=== PATIENT | female | born 1945 | race Caucasian/White ===

== ENCOUNTER 2019-01-19 06:54 | Inpatient (IN) ==
--- NOTE | 2019-01-10 10:12 | Anesthesiology Consultation ---
Date of Service January 10, 2019 Assessment & Plan Chart Review Chart Review: Pending: Refer to Additional Notes / Consult section The patient has a history of coronary artery disease, hypertension, atrial fibrillation and diabetes. Please obtain cardiology clearance. Also patient's last INR elevated to 2.17 on xarelto. Please have cardiology address. Repeat coags have been ordered for morning of surgery. Patient has a history of multiple cerebral aneurysms with last one coiled in 2009. Please obtain neurosurgery clearance to ensure no prior testing/imaging is needed prior to elective surgery. Patient states her son may have had malignant hyperthermia and that she was told to use precautions. Patient's anesthetic record from [facility] from 2009 for endovascular coiling showed the patient had GA with sevofluorane. Recommend patient be scheduled first in the day in case MH precautions need to be taken. History Surgery Operation Date: 01/19/19 08:45 Proposed Procedures p Right Reverse Total Shoulder Arthroplasty - Emeterio Mcgrath MD Height/Weight Height: 5 ft 3 in Weight: 73.936 kg Allergies Allergy/AdvReac Type Severity Reaction Status Date / Time Sulfa (Sulfonamide Allergy Unknown Hives Verified 12/22/18 12:16 Antibiotics) Medications Home Medications Medication Instructions Recorded Confirmed Last Taken amiodarone 200 mg PO QDL 08/23/18 12/22/18 08/23/18 calcium carbonate-vitamin D3 1 tab PO BID 08/23/18 12/22/18 08/23/18 [Calcium 600 + D(3)] carvedilol [Coreg] 12.5 mg PO BIDM 08/23/18 12/22/18 08/23/18 cholecalciferol (vitamin D3) 1,000 unit PO QAM 08/23/18 12/22/18 08/23/18 [Vitamin D3] levothyroxine 175 mcg PO QAM 08/23/18 12/22/18 08/23/18 lorazepam [Ativan] 0.5 mg PO UD PRN 08/23/18 12/22/18 Unknown losartan 100 mg PO QAM 08/23/18 12/22/18 08/23/18 metformin 500 mg PO QAM 08/23/18 12/22/18 08/23/18 nitroglycerin 1 tab SUBLINGUAL UD PRN 08/23/18 12/22/18 Unknown omeprazole 20 mg PO QAM 0412/22/18 08/23/18 pyridoxine (vitamin B6) [Vitamin 200 mg PO QAM 12/22/18 12/22/18 Unknown B-6] rivaroxaban [Xarelto] 20 mg PO QDD 12/22/18 12/22/18 Unknown Past Medical History Medical History Afib DX 06/2016 - [facility] [place]. 12/22/2018 PT STATES BACK IN AFIB AGAIN DIAGNOSES 08/2018 Aneurysm "3 IN HEAD, 1 COILED " - 10 YR AGO ([place]) Anxiety Anxiety Chronic diarrhea "FROM METFORMIN" Coronary artery disease Degenerative disc disease LUMBAR GERD (gastroesophageal reflux disease) Herniated disc L3 Hiatal hernia History of CHF (congestive heart failure) History of basal cell carcinoma Hx of esophageal spasm Hypertension Hypothyroid Osteoarthritis Prolapsed bladder Pulmonary nodules Several right sided nodules, all <5mm Type 2 diabetes mellitus Vertigo BPPV Past Surgical History Surgical History Family history of reaction to anesthesia PT SON, AT AGE 5 - ? MALIGNANT HYPERTHERMIA - NOT TESTED - TOLD TO USE PERCAUTION. PT STATES SHE HAS NOT HAD A PROBLEM AND NO ADDITIONAL FAMILY MEMBER ISSUES History of brain surgery 3 ANNEURYSMS, 1 COILED - 10 YR AGO - [place] History of cardiac cath 2005[place], DX OF ESOPHAGEAL SPASMS History of cardioversion History of hysterectomy History of laryngoscopy Social History Smoking Status: Former smoker Smoking cigarettes per day: ~2PPD x 20 YEARS Do You Dip or Chew Tobacco: No Smoking End Date: 30 YR AGO Hx Alcohol Use: Yes Alcohol type: beer, wine and hard liquor alcohol intake frequency: a few times a week Hx Substance Use: No substance use type: does not use Testing Laboratory Results 12/27/18: WBC 10/26. Hgb 12.6, HCT 38.5. PLT 255 01/06/19: PT 24.4, INR 2.17, PTT 41 12/27/18: Na 145, K 4.5, BUN 18, Creat 1.3, Gluc 145, Calcium 9.3 HGBAIC 6.2 Electrocardiogram Date: 08/30/18 Atrial flutter with variable AV block HR 75 Chest X-Ray Date: 01/06/19 Findings: + NAD Echocardiogram Date: 09/22/18 EF: 55-60% The left atrium is borderline dilated RA is mildly dilated Global RV systolic function is normal The right ventricular size is mildly enlarged.
--- NOTE | 2019-01-18 18:06 | History and Physical Report ---
DATE OF ADMISSION: 01/19/2019 CHIEF COMPLAINT: Chronic right shoulder pain. HISTORY OF PRESENT ILLNESS: This is a 73-year-old female patient of Dr. Mcgrath'trish complaining of chronic right shoulder pain and weakness, longstanding, now progressively getting worse. A CT scan showed rotator cuff arthropathy. She has failed conservative treatment and she has elected to proceed with a right reversed total shoulder arthroplasty. PAST MEDICAL HISTORY: Congestive heart failure, coronary artery disease status post an VT in 2017, hypertension, atrial fibrillation, diabetes mellitus, hypothyroidism, osteoarthritis, neck problems, sciatica, acid reflux, hiatal hernia, obesity, upper dentures, history of basal cell carcinoma of the nose. SOCIAL HISTORY: Lifelong smoker, quit in 1988. She is an occasional drinker. PAST SURGICAL HISTORY: Will be provided on admission. FAMILY HISTORY: Noncontributory. REVIEW OF SYSTEMS: Chronic right shoulder pain and weakness. Otherwise, denies any current shortness of breath, chest pain, nausea, vomiting or any other joint complaints. MEDICATIONS: 1. Omeprazole 20 mg daily. 2. Levothyroxine 175 mcg daily. 3. Calcium 600 plus D daily. 4. Vitamin B6 100 mg 2 tablets daily. 5. Carvedilol 12.5 mg daily. 6. Metformin 500 mg daily. 7. Losartan 100 mg daily. 8. Amiodarone 200 mg daily. 9. Xarelto 20 mg daily. 10. Ativan 0.5 mg as needed. 11. Aspirin 81 mg daily. ALLERGIES: SULFA WHICH CAUSES HIVES. PHYSICAL EXAMINATION: GENERAL: Well-developed, well-nourished 73-year-old female in no acute distress. She is alert and oriented x3 and pleasant. HEENT: Normocephalic, atraumatic. Extraocular motions are intact. Pupils are equal and reactive to light. HEART: Regular rate with irregular rhythm associated with atrial fibrillation. LUNGS: Clear. ABDOMEN: Soft and nontender. Bowel sounds are present. EXTREMITIES: Right upper extremity range of motion of her shoulder is 0-80 actively, passively to 120 with crepitation and pain. She has 3/5 strength globally with pain. Neurologically and neurovascularly she is intact in her right upper extremity. DIAGNOSES: Right shoulder rotator cuff arthropathy, angina, coronary artery disease status post an VT in 2017. Congestive heart failure, hypertension, atrial fibrillation, diabetes mellitus, hypothyroidism, osteoarthritis, neck problems, sciatica, acid reflux, hiatal hernia, obesity, upper dentures orally, history of basal cell nose carcinoma. PLAN: The patient was advised of her diagnosis. Indications, risks, benefits, postop course have all been reviewed. The patient wished to proceed with a right reverse total shoulder arthroplasty. Necessary consent forms, preoperative testing and clearances will be obtained.
[~2019-01-19 06:54] MED LIST: ACETAMINOPHEN 500 MG TAB PO SCH; CEFAZOLIN 1000MG 1,000 MG/7.5 ML SYR IV SCH; DEXAMETHASONE SOD INJ 4 MG/ML VIAL ONE; FAMOTIDINE 20 MG TAB PO SCH; GABAPENTIN 300 MG CAP PO SCH; GLYCOPYRROLATE 0.2 MG/ML VIAL ONE; KETAMINE HCL INJ 50 MG/ML 10 ML VIAL ONE; LIDOCAINE HCL 2% 2 ML VIAL/AMP(20MG/ML) INFIL ONE; LR 15ML/HR IV SCH; METOCLOPRAMIDE HCL 10 MG TABLET PO SCH; MIDAZOLAM HCL 1 MG/ML 2ML VIAL ONE; ONDANSETRON INJ 2 MG/ML 2 ML VIAL ONE; PROPOFOL IV EMULSION 10 MG/ML 100 ML VIAL IV ONE; PROPOFOL IV EMULSION 10 MG/ML 20 ML VIAL IV ONE; ROCURONIUM BROMIDE 10 MG/ML 5 ML VIAL ONE; ROPIVACAINE 0.5% 5 MG/ML 30 ML VIAL ONE; fentaNYL citrate 100 MCG/2 ML VIAL ONE
[2019-01-19] MEDS ORDERED: BACITRACIN INJ 50,000 UNIT VIAL ONE (07:05)
--- NOTE | 2019-01-19 07:23 | History & Physical Bridge Note ---
Date of Service January 19, 2019 History & Physical Bridge Note I have examined the patient, reviewed the History & Physical and in the interval since the performance of the History & Physical I have noted the following changes of clinical significance: no changes noted
[2019-01-19 07:52] LABS: INR 1.1 (0.9-1.1); Partial Thromboplastin Ratio 0.9; Partial Thromboplastin Time 23.6 Seconds (21.0-31.0); Prothrombin Time 11.1 Seconds (9.0-12.0)
[2019-01-19] MEDS ORDERED: ePHEDrine sulfate 50 MG/ML AMP IV PRN (09:21)
[2019-01-19] MEDS ORDERED: HYDROmorphone INJ 1 MG/ML SYRINGE IV PRN (09:21)
[2019-01-19] MEDS ORDERED: ATROPINE SULFATE 0.1 MG/ML 10ML SYR IV PRN (09:21)
--- NOTE | 2019-01-19 12:34 | Post Operative Brief Note ---
Immediate Post Op Note v1 Date of Surgery January 19, 2019 Pre & Post Diagnosis Operation Date: 01/19/19 09:35 Pre-Op Diagnosis: Right Shoulder chronic irrepairable rotator cuff tear, rotator cuff arthropathy, biceps tendinopathy Post-Op Diagnosis: Right Shoulder chronic irrepairable rotator cuff tear, rotator cuff arthropathy, biceps tendinopathy Procedure Operation Date: 01/19/19 09:35 Actual Procedures p Right Reversed Total Shoulder Arthroplasty, Biceps Tenodesis(Right) - mEeterio Mcgrath MD Surgeon Emeterio Mcgrath MD Outcomes Manager Mati LOPEZ Estimated Blood Loss 30 Findings Consistent with Post-Op Diagnosis Specimens Humeral head Drains Hemovac Drain Anesthesia Type General Regional Complications none Disposition Accompanied Patient To Recovery: No Disposition: Recovery Room Overlapping Procedure I was present for: the critical portions of procedure.
--- NOTE | 2019-01-19 13:05 | Anesthesiology Progress Note ---
Date of Service January 19, 2019 Anesthesia Post Procedure Vital Signs Vital Signs: Temp Pulse Pulse Resp BP Pulse Ox 01/19/19 12:47 35.8 C L 86 18 126/102 H 100 01/19/19 07:39 36.7 C 83 18 151/82 H 100 Transfer of Care Handoff Completed per policy Notes Mental Status: alert / awake / arousable Patient Amnestic to Procedure: Yes Nausea / Vomiting: adequately controlled Pain: adequately controlled Airway Patency, RR, SpO2: stable & adequate BP & HR: stable & adequate Hydration State: stable & adequate Anesthetic Complications: no major complications apparent and Pt Satisfied with anesthetic care
--- NOTE | 2019-01-19 13:29 | XRay Report ---
XR shoulder RT min 2V routine CLINICAL HISTORY: Post shoulder surgery postoperative COMPARISON: None. DISCUSSION: Anatomic alignment posttotal right shoulder arthroplasty. Could contact between prostheti c and underlying bone. Expected soft tissue postoperative change. IMPRESSION: Anatomic alignment posttotal right shoulder arthroplasty. The above report was generated using voice recognition software. It may contain grammatical, syntax or spelling errors. Electronically signed by: Randy Teague M.D. 01/19/2019 1:28 PM
[2019-01-19] MEDS ORDERED: MAGNESIUM HYDROXIDE SUSP 30 ML UDC PO PRN (13:58)
[2019-01-19] MEDS ORDERED: LORazepam 0.5 MG TAB PO PRN (13:58)
[2019-01-19] MEDS ORDERED: HYDROmorphone INJ 0.5 MG/0.5 ML SYR IV PRN (13:58)
[2019-01-19] MEDS ORDERED: NALOXONE HCL 0.4 MG/1 ML VIAL/CARP IV PRN (13:58)
[2019-01-19] MEDS ORDERED: BISACODYL 10 MG SUPP PR PRN (13:58)
[2019-01-19] MEDS ORDERED: NITROGLYCERIN 0.3 MG/1 TAB 100 TAB BTL SL PRN (13:58)
[2019-01-19] MEDS ORDERED: PHARMACY GLYCEMIC MGMT CONSULT PRN (14:01)
[2019-01-19] MEDS ORDERED: INSULIN ASPART 100 UNITS/ML 3 ML PEN SC SCH (14:10)
[2019-01-19] MEDS ORDERED: LANTUS PER UNIT CHARGE SQ ONE (14:15)
[2019-01-19] MEDS ORDERED: DEXTROSE 50% 50 ML SYRINGE IV PRN (14:15)
[2019-01-19] MEDS ORDERED: GLUCAGON FOR INJ 1 MG VIAL IM PRN (14:15)
[2019-01-19] MEDS ORDERED: GLUCOSE 10 TABS/TUBE PO PRN (14:15)
[2019-01-19] MEDS ORDERED: CARBOHYDRATES FOR HYPOGLYCEMIA PO PRN (14:15)
[2019-01-19] MEDS ORDERED: GLUCOSE 40% GEL 15 GM TUBE PO PRN (14:15)
--- NOTE | 2019-01-19 14:21 | Pharmacy Report ---
Glycemic Control Consultation - Date of Service January 19, 2019 - Scope Scope: Glycemic Pharmacist consulted by Mati Triana on 01/19 for glycemic control and to write orders per [facility] inpatient glycemic control protocol - Objective Weight: 73.6 kg Accuchecks BSG (last 24hrs): 01/19/19 01/19/19 07:34 12:48 POC Glucose 148 H 152 H - Recent Pertinent Medications Outpatient Anti-diabetic Regimen: * metformin 500 mg Qam * A1c = 6.1 % [08/30/18] - reordered for tomorrow 01/20 Risk Factors for Insulin Resistance: * Steroids: DXM 4 iv x 1 * Recent Surgery: POD 0 * Diet: T2DM - Assessment & Plan Assessment & Plan: ASSESSMENT: * 73 year old s/p total shoulder arthroplasty. PMHx significant for CHF, CAD, afib, hypothyroidism * Type 2 diabetic managed only on metformin at home - updated A1C ordered for tomorrow * Patient did receive steroids in OR, therefore anticipate steroid induced hyperglycemia. Will utilize basal/bolus dosing postop PLAN FOR INPATIENT GLYCEMIC CONTROL: * Pt is maintained on oral antidiabetic agents as an outpatient * Oral agents are not recommended for inpatient use d/t drug interactions, changing PO intake, and difficulty titrating for acute hyper/hypoglycemia. ADA recommends re-initiating outpatient oral agents 1-2 days prior to discharge if/when appropriate if they were held on admission. * Will hold oral agents for admission and utilize SQ basal bolus insulin regimen which is the recommended regimen for inpatient glycemic control. * Will initiate weight based insulin dosing for insulin frank patient and titrate based on BSG trends. * Basal insulin * Lantus 14 x 1 (~0.2 units/kg) x 1 now * Bolus insulin * NovoLog per scale ACHS or Q6hrs while NPO * Goal Range: Low 120 mg/dL - High 160 mg/dL * Correction Factor: 25 mg/dL/unit * Nutritional / Prandial insulin per carb ratio of 1 unit per 8 grams CHO consumed * Please note that the plan above was derived based on current level of insulin resistance and hospital stress. These recommendations are appropriate for inpatient admission only. Plan of care upon discharge will need to be reassessed to avoid potential outpatient hypo/hyperglycemia. Thank you.
[2019-01-19] MEDS: INSULIN ASPART 100 UNITS/ML 3 ML PEN SC SCH ×3 (15:20→21:41)
[2019-01-19 15:23] LABS: Creatinine Clr Calc Pharmacy 45.4 ml/min; Est GFR (African American) 61.6; Est GFR (Non-African American) 53.1
[2019-01-19] MEDS: ACETAMINOPHEN 500 MG TAB PO SCH ×2 (15:24→21:42)
[2019-01-19] MEDS ORDERED: RIVAROXABAN 20 MG TAB PO ONE (16:30)
[2019-01-19] MEDS: CARVEDILOL 12.5 MG TAB PO SCH (18:22)
[2019-01-19] MEDS: CEFAZOLIN 1000MG 1,000 MG/7.5 ML SYR IV SCH (18:25)
[2019-01-19] MEDS: SODIUM CHLORIDE 0.9% 1000ML 1,000 ML IV SCH (18:27)
--- NOTE | 2019-01-19 18:45 | Hospitalist Consultation ---
Date of Consultation January 19, 2019 Assessment & Plan (1) Right shoulder pain: s/p OR on 01/[address] Mcgrath Pre-op Hb not in system (2) GERD (gastroesophageal reflux disease): continue home meds (3) HTN (hypertension): continue home meds (4) Hypothyroid: continue home meds (5) DM type 2 (diabetes mellitus, type 2): Metformin only (6) Anxiety: Hx of PRN ativan use but "I don't even know where the bottle is I haven't taken it in so long" (7) Afib: continue home meds Resume xarelto as per ortho (8) DVT prophylaxis: As per ortho History of Present Illness Attending Physician: Emeterio Mcgrath MD History of Present Illness 73 y/o F who was admitted on 01/18 s/p R rotator cuff repair with Dr. Mcgrath . Pt is doing well post-op. Tolerating PO without issue. Pt denies fever, SOB, chest pain, abd pain, n/v/c/d, LE swelling. She has some residual R finger numbness, but no pain related to her surgery. Allergies Allergy/AdvReac Type Severity Reaction Status Date / Time Sulfa (Sulfonamide Allergy Severe Hives Verified 01/19/19 07:16 Antibiotics) Home Medications Home Medications Medication Instructions Recorded Confirmed Type amiodarone 200 mg PO QDL 08/23/18 01/19/19 History calcium carbonate-vitamin D3 1 tab PO BID 08/23/18 01/19/19 History [Calcium 600 + D(3)] carvedilol [Coreg] 12.5 mg PO BIDM 08/23/18 01/19/19 History cholecalciferol (vitamin D3) 1,000 unit PO QAM 08/23/18 01/19/19 History [Vitamin D3] levothyroxine 175 mcg PO QAM 08/23/18 01/12/19 History lorazepam [Ativan] 0.5 mg PO UD PRN 08/23/18 01/12/19 History losartan 100 mg PO QAM 08/23/18 01/19/19 History metformin 500 mg PO QAM 08/23/18 01/19/19 History nitroglycerin 1 tab SUBLINGUAL UD PRN 08/23/18 01/12/19 History omeprazole 20 mg PO QAM 08/23/18 01/12/19 History pyridoxine (vitamin B6) [Vitamin 200 mg PO QAM 12/22/18 01/19/19 History B-6] rivaroxaban [Xarelto] 20 mg PO QDD 12/22/18 01/19/19 History Patient History Medical History Anxiety Degenerative disc disease LUMBAR Hx of esophageal spasm Hypothyroid Afib DX 06/2016 - [facility] [place]. 12/22/2018 PT STATES BACK IN AFIB AGAIN DIAGNOSES 08/2018 Aneurysm "3 IN HEAD, 1 COILED " - 10 YR AGO ([place]) Anxiety Chronic diarrhea "FROM METFORMIN" Coronary artery disease GERD (gastroesophageal reflux disease) Herniated disc L3 Hiatal hernia History of CHF (congestive heart failure) History of basal cell carcinoma Hypertension Osteoarthritis Prolapsed bladder Pulmonary nodules Several right sided nodules, all <5mm Type 2 diabetes mellitus Vertigo BPPV Surgical History Family history of reaction to anesthesia PT SON, AT AGE 5 - ? MALIGNANT HYPERTHERMIA - NOT TESTED - TOLD TO USE PERCAUTION. PT STATES SHE HAS NOT HAD A PROBLEM AND NO ADDITIONAL FAMILY MEMBER ISSUES History of brain surgery 3 ANNEURYSMS, 1 COILED - 10 YR AGO - [place] History of cardiac cath 2005...[place], DX OF ESOPHAGEAL SPASMS History of cardioversion History of hysterectomy History of laryngoscopy Family History Mother Myocardial infarction Diabetes Father COPD (chronic obstructive pulmonary disease) Brother Diabetes Social History Preferred Language: Bhutanese Communication Ability: Effective Hand Binder Cutter Required: No Beliefs That Will Affect Care: None Current Living Situation: Alone Feels Safe at Home: Yes Smoking Status: Former smoker Cigarettes Per Day: ~2PPD x 20 YEARS ; Do You Dip or Chew Tobacco: No ; Smoking End Date: 30 YR AGO ; Second Hand Exposure: No ; Hx Alcohol Use: Yes Alcohol type: beer, wine and hard liquor Alcohol Intake Frequency Comment: a few drinks a few times a week, but not daily Hx Substance Use: No Review of Systems Review of Systems: Pertinent positives and negatives reviewed in HPI--all others negative Physical Exam Constitutional: WD/WN, vitals as above Eyes: normal visual purdy by confrontation and + anicteric sclerae Neck: normal visual inspection and trachea midline Respiratory: normal respiratory effort, lungs clear to auscultation Cardiovascular: Rate/Rhythm: regular rate and regular rhythm Gastrointestinal (Abdomen): Inspection/Auscultation: abdomen not distended Percussion/Palpation: abdomen soft; abdomen nontender Musculoskeletal: Head/Neck/Chest: normocephalic and head atraumatic negative for edema, peripheral pulses intact Skin: no rashes, warm and dry Neurologic: awake; not confused Speech / Cognition: normal speech Psychiatric: A+Ox3, euthymic affect Results & Data Vital Signs (Past 12 Hours) Vital Signs Temp Pulse Pulse Resp BP Pulse Ox 01/19/19 16:45 73 14 159/89 H 97 01/19/19 15:42 36.4 C L 86 18 154/86 H 99 01/19/19 15:16 36.3 C L 77 17 155/85 H 99 01/19/19 14:47 36.3 C L 74 15 128/77 97 01/19/19 14:18 71 16 124/71 99 01/19/19 13:45 35.8 C L 72 16 131/75 99 01/19/19 13:35 64 20 126/80 94 01/19/19 13:25 36.4 C L 70 20 140/69 93 01/19/19 13:15 73 18 114/59 L 97 01/19/19 13:05 69 16 143/82 H 96 01/19/19 12:55 69 22 144/78 H 100 01/19/19 12:47 35.8 C L 86 18 126/102 H 100 01/19/19 07:39 36.7 C 83 18 151/82 H 100 PG Care Time/CCT Total # of Minutes Spent Total Time Spent with Patient: Total time spent is greater than 50% in coordination of care (as documented) at patient's floor/unit and/or counseling patient:
--- NOTE | 2019-01-19 19:09 | Operative Report ---
Post Operative Report Pre & Post Diagnosis Operation Date: 01/19/19 09:35 Pre-Op Diagnosis: Right Shoulder chronic irrepairable rotator cuff tear, rotator cuff arthropathy, biceps tendinopathy Post-Op Diagnosis: Right Shoulder chronic irrepairable rotator cuff tear, rotator cuff arthropathy, biceps tendinopathy Procedure Operation Date: 01/19/19 09:35 Actual Procedures p Right Reversed Total Shoulder Arthroplasty, Biceps Tenodesis(Right) - Emeterio Mcgrath MD Surgeon Emeterio Mcgrath MD [employer] Mati LOPEZ Estimated Blood Loss 30 Findings Consistent with Post-Op Diagnosis Specimens Humeral head Drains 2 Hemovac Anesthesia Type General Regional Complications none Disposition Accompanied Patient To Recovery: No Disposition: Recovery Room Indications 73-year-old female with chronic right shoulder pain failed conservative management. Patient has dysfunctional shoulder weakness and ability to raise her arm overhead and x-rays and MRI demonstrate proximal migration of the humerus and chronic retracted rotator cuff tear Description of Procedure The patient was taken to the operating room and anesthetized under regional block and general anesthetic. The patient was positioned on the operating table in a 30 beachchair position with a towel roll under the medial border of the right scapula. The arm was draped free to be able to manipulate the shoulder as needed. The right upper extremity was prepped and draped in usual sterile fashion. Exam demonstrated abduction 80 forward elevation to 120 external ro tation to 45 with subacromial crepitation. There appeared to be proximal migration of the humerus.. An anterior deltopectoral approach was performed. A longitudinal incision was made in the deltopectoral interval. The skin was incised sharply. Subcutaneous flaps were elevated off the fascia. The cephalic vein was dissected out and retracted lateral with the deltoid. The clavipectoral fascia was divided at the lateral margin of the conjoined tendon and extended up to the CA ligament. The following findings were noted chronic subacromial bursitis with full-thickness rotator cuff tear involving the posterior supraspinatus and infraspinatus with intact subscapularis. There was widened chronic biceps tendinopathy and biceps tenosynovitis. The upper centimeter of the pectoralis was released for inferior exposure. The biceps tendon findings demonstrated biceps tenosynovitis and proximal tendinopathy. the biceps tendon was tenodesed to the pectoralis tendon with #2 FiberWire. The proximal biceps was resected. The subscapularis tendon was taken down off the lesser tuberosity using a subperiosteal dissection. A #1 Vicryl traction suture was placed into the free end of the subscapularis tendon and capsule. The subscapular muscle fibers were split longitudinally at the level of the circumflex vessels. The circumflex vessels were identified and tied off with silk ties and divided laterally. A Kitner elevator was used to free up the inferior fibers of the subscapularis off of the capsule. The axillary nerve was identified with a tug test and protected with a blunt Berta retractor between the nerve and the capsule. The subscapularis tendon was then taken down off of the lesser tuberosity subperiosteally and subperiosteal dissection was performed along the neck of the humerus as the arm is gradually actually rotated exposing the humeral head. Retractors were readjusted and the inferior osteophytes were all resected using an artist chisel. A Rome elevator was used to assist in releasing the capsule of the neck of the humerus. The capsule was divided with Davalos scissors down to the glenoid released off the anterior glenoid and the rotator interval was released to meet the capsular release and a 360 release of the subscapularis was accomplished. A Fukuda retractor was placed into the joint retracting the humeral head posterior. Glenoid findings demonstrated still intact articular cartilage on the glenoid. The labrum and biceps tendon was resected. an anterior-inferior and posterior inferior capsular release were performed with electrocautery and a Rome elevator on bone with the axillary nerve protected inferiorly by the retractor. Attention was then taken to the humeral preparation. The cutting guide was placed into the humeral head. It was positioned at 20 of retroversion. Oscillating saw was used to resect the humeral head giving the cut above the level of the posterior rotator cuff insertion site. The humerus was then prepared for the stem. I used the ascend flex stem from [employer]. The sizing broaches were used followed by trial broaches up to a size 2B long which had the appropriate fit and fill. The appropriate sized cut protector was placed. The humerus was then retracted posterior to the glenoid. The glenoid was sized for a 25. The guide for the baseplate was positioned in a 10 inferior tilt and the central drill hole was made. The reamer for the 25 baseplate was used. The central drill was widened for the peg. The 25 mm aequalis hydroxyapatite-coated baseplate was impacted into position. The base plate was transfixed with superior and inferior locking screws and anterior and posterior compression screws with stable fixation. The fan reamer was used for the 36 millimeter glenoid sphere. After irrigation the 36 standard glenoid sphere was impacted onto the baseplate and the screw was tightened. Attention was taken back to the humerus. The cut protector was removed and the 3.5 high offset humeral tray trial was assembled to the trial stem rotated appropriately to get bony coverage and then screwed in position. A trial reduction was performed. A 36/+6 trial insert demonstrated good stability and no shuck. The trials were removed. 3 drill holes are made into the harder bone in the bicipital groove area and 3 #5 FiberWire sutures were placed transosseously. The canal was irrigated with antibiotic solution with bacitracin. The final component was assembled. The final component was 36/+6 polyethylene insert, plus or high offset tray, 2B long ascend flex humeral stem. This was then impacted into the humerus with a tight press-fit. It was reduced to the glenoid sphere. Stability was verified. Subscapularis was repaired with the #5 FiberWire sutures using Sacha-Nelson suture technique. Lateral row soft tissue repair was performed with #2 FiberWire [id number] sutures. The pectoralis was repaired with #2 FiberWire [id number] sutures reinforcing the biceps tendon tenodesis. The arm was taken through a range of motion which demonstrated 130 degrees forward elevation 90 degrees abduction external rotation 45. The implant was stable through the range of motion tested. The wound was copiously irrigated. 2 Hemovac drains were placed. The deltopectoral interval was closed with [id number] #1 Vicryl sutures. The subcutaneous tissues were closed with 2- 0 Vicryl sutures. The skin was closed with aram. Sterile dressings were applied and a shoulder immobilizer. Mati Triana my physician psych assistant assisted in the procedure to the entire procedure including patient positioning arm positioning prepping and draping soft tissue retraction instrument management suture management and performed the subcutaneous and skin closure and will participate in the postoperative care of the patient. I attest to the content of the Intraoperative Record and any orders documented therein. Any exceptions are noted below.
[2019-01-19] MEDS: SENNA 8.6 MG TAB PO SCH (20:07)
[2019-01-19] MEDS: RIVAROXABAN 15 MG TAB PO SCH (20:07)
[2019-01-19] MEDS: DOCUSATE SODIUM 100 MG CAP PO SCH (20:07)
[2019-01-20] MEDS: CEFAZOLIN 1000MG 1,000 MG/7.5 ML SYR IV SCH (02:54)
[2019-01-20] MEDS: INSULIN ASPART 100 UNITS/ML 3 ML PEN SC SCH ×6 (04:00→20:44)
[2019-01-20 05:44] LABS: Hematocrit (blood only) 32.4 % (37-47); Hemoglobin 10.6 g/dL (12.0-16.0); Immature Granulocytes # (auto) 0.02 K/uL (0.00-0.02); Immature Granulocytes % (auto) 0.2 %; Lymphocytes # (auto) 0.84 K/uL (1.2-3.4); Lymphocytes % (auto) 8.2 %; Mean Corpuscular Hgb Conc 32.7 g/dL (32-36); Mean Corpuscular Volume 96.1 fL (80-100); Mean Platelet Volume 10.4 fL (7.4-10.4); Monocytes # (auto) 0.56 K/uL (0.11-0.59); Monocytes % (auto) 5.5 %; Neutrophils % (auto) 86.1 %; Platelet Count 207 K/uL (130-400); RDW Coefficient of Variation 15.7 % (11.5-14.5); RDW Standard Deviation 54.1 fL (36.4-46.3); Red Blood Count 3.37 M/uL (4.2-5.4); White Blood Count 10.22 K/uL (4.8-10.8)
[2019-01-20] MEDS: SODIUM CHLORIDE 0.9% 1000ML 1,000 ML IV SCH (06:08)
[2019-01-20 06:11] LABS: BUN Creatinine Ratio 11.7 (10-20); Calcium 8.4 mg/dl (8.5-10.1); Creatinine Clr Calc Pharmacy 43.3 ml/min; Est GFR (African American) 58.2; Est GFR (Non-African American) 50.2; Potassium 4.4 mmol/L (3.5-5.1)
[2019-01-20 06:13] LABS: Estimated Average Glucose 131 mg/dl; Hemoglobin A1C 6.2 % (4.5-5.6)
[2019-01-20] MEDS: LEVOTHYROXINE SODIUM 175 MCG TABLET PO SCH (06:14)
[2019-01-20] MEDS: ACETAMINOPHEN 500 MG TAB PO SCH ×3 (06:16→21:38)
[2019-01-20] MEDS: OXYCODONE HCL IR 5 MG TAB (IMMEDIATE RELEASE) PO PRN ×5 (06:18→21:44)
[2019-01-20] MEDS: PANTOprazole 40 MG TAB PO SCH (06:21)
--- NOTE | 2019-01-20 07:47 | Anesthesiology Progress Note ---
Date of Service January 20, 2019 Anesthesia Post Procedure Vital Signs Vital Signs: Temp Pulse Pulse Resp BP Pulse Ox 01/20/19 07:19 36.7 C 53 L 16 98/64 L 97 01/20/19 04:14 36.6 C 62 14 101/64 98 01/20/19 00:18 36.5 C 64 14 124/79 98 01/19/19 20:10 36.4 C L 76 18 137/72 99 01/19/19 16:45 73 14 159/89 H 97 01/19/19 15:42 36.4 C L 86 18 154/86 H 99 01/19/19 15:16 36.3 C L 77 17 155/85 H 99 01/19/19 14:47 36.3 C L 74 15 128/77 97 01/19/19 14:18 71 16 124/71 99 01/19/19 13:45 35.8 C L 72 16 131/75 99 01/19/19 13:35 64 20 126/80 94 01/19/19 13:25 36.4 C L 70 20 140/69 93 01/19/19 13:15 73 18 114/59 L 97 01/19/19 13:05 69 16 143/82 H 96 01/19/19 12:55 69 22 144/78 H 100 01/19/19 12:47 35.8 C L 86 18 126/102 H 100 Notes Mental Status: alert / awake / arousable and participated in evaluation Patient Amnestic to Procedure: Yes Nausea / Vomiting: adequately controlled Pain: adequately controlled Airway Patency, RR, SpO2: stable & adequate BP & HR: stable & adequate Hydration State: stable & adequate Neuraxial Anesthesia: sensory block is resolving Anesthetic Complications: Pt Satisfied with anesthetic care
--- NOTE | 2019-01-20 08:19 | Orthopedic Progress Note ---
Date of Service January 20, 2019 Assessment & Plan (1) Right shoulder pain: POD #1, Right reversed TSA, Biceps tenodesis PT/ OT D/C planning- Home w HEP DVT proph- Xarelto As per medicine. Subjective POD #1, doing well. Denies SOB, CP, N/V Pain controlled well. Physical Exam Physical Exam: Right shoulder dressings c/d/i, drain in tact. Fingers mobile. Sling in tact. A&Ox3 Results & Data Vital Signs (Past 12 Hours) Vital Signs Temp Pulse Pulse Resp BP Pulse Ox 01/20/19 07:19 36.7 C 53 L 16 98/64 L 97 01/20/19 04:14 36.6 C 62 14 101/64 98 01/20/19 00:18 36.5 C 64 14 124/79 98
[2019-01-20] MEDS: CARVEDILOL 12.5 MG TAB PO SCH ×2 (08:20→17:16)
[2019-01-20] MEDS: CHOLECALCIFEROL 1,000 UNITS TAB PO SCH (08:20)
[2019-01-20] MEDS: MULTIVITAMIN TAB PO SCH (08:20)
[2019-01-20] MEDS: PYRIDOXINE HCL 50 MG TAB PO SCH (08:21)
[2019-01-20] MEDS: DOCUSATE SODIUM 100 MG CAP PO SCH ×2 (08:22→20:24)
[2019-01-20] MEDS ORDERED: METFORMIN HCL 500 MG TAB PO SCH (09:00)
--- NOTE | 2019-01-20 09:40 | Pharmacy Report ---
Pharmacy Glycemic Short Note 2 - Date of Service January 20, 2019 - Glycemic Short BSG Results (Last 24 hours): 01/19/19 01/19/19 01/19/19 12:48 17:17 20:29 Glucose POC Glucose 152 H 135 H 175 H 01/20/19 01/20/19 01/20/19 00:20 04:15 04:59 Glucose 156 H POC Glucose 144 H 160 H 01/20/19 08:25 Glucose POC Glucose 138 H OUTPATIENT ANTIDIABETIC REGIMEN: * Metformin 500 mg PO qam ASSESSMENT: * s/p total shoulder arthroplasty (01/19/19) * Received one dose of dexamethasone 4 mg IV in OR yesterday * A1c resulted today at 6.2% (well-controlled with home metformin 500 mg PO qam) PLAN FOR INPATIENT GLYCEMIC CONTROL: * Hold outpatient oral diabetes medications * Basal insulin * One-time Lantus 14 units given yesterday to cover dexamethasone * Fasting BG this AM of 138 * Bolus insulin * NovoLog per scale ACHS or Q6hrs while NPO * Goal Range: Low 120 mg/dL - High 160 mg/dL * Correction Factor: 25 mg/dL/unit * Nutritional / Prandial insulin per carb ratio of 1 unit per 8 grams CHO consumed * Received 7 units of Novolog yesterday PLAN FOR DISCHARGE: * HbA1c at goal (6.2%) * Continue home regimen at discharge * Metformin 500 mg PO qam
[2019-01-20] MEDS: LOSARTAN POTASSIUM 50 MG TAB PO SCH (12:39)
[2019-01-20] MEDS: AMIODARONE 200 MG TAB PO SCH (12:40)
[2019-01-20] MEDS ORDERED: RIVAROXABAN 20 MG TAB PO SCH (16:30)
[2019-01-20] MEDS: RIVAROXABAN 15 MG TAB PO SCH (17:16)
[2019-01-20] MEDS: SENNA 8.6 MG TAB PO SCH (20:24)
[2019-01-21] MEDS: LEVOTHYROXINE SODIUM 175 MCG TABLET PO SCH (06:21)
[2019-01-21] MEDS: OXYCODONE HCL IR 5 MG TAB (IMMEDIATE RELEASE) PO PRN ×2 (06:21→11:28)
[2019-01-21] MEDS: ACETAMINOPHEN 500 MG TAB PO SCH ×2 (06:21→13:54)
--- NOTE | 2019-01-21 08:32 | Orthopedic Progress Note ---
Date of Service January 21, 2019 Assessment & Plan (1) Right shoulder pain: POD #2, Right reversed TSA, Biceps tenodesis PT/ OT D/C planning- Home w HEP today if pain controlled this afternoon DVT proph- Xarelto As per medicine. Supervising Physician Co-Signing Physician Notes Patient seen and examined this morning. I agree with JOHN Henriquze's note as above. She is 2 days out from her right reverse total shoulder arthroplasty and doing fair. She has been struggling with pain control and nausea, but this is slowly improving. Subjective POD #1, doing well this am. resting comfortably in bed Denies SOB, CP, N/V Pain controlled well currently but notes that it was terrible yesterday into the night Physical Exam Physical Exam: fingers mobile, NVI. Calves soft, non tender. incision is clean and dry Results & Data Vital Signs (Past 12 Hours) Vital Signs Temp Pulse Resp BP Pulse Ox 01/21/19 07:55 36.7 C 85 18 113/68 94 01/20/19 23:50 36.8 C 66 16 98/61 L 99
[2019-01-21] MEDS: ONDANSETRON INJ 2 MG/ML 2 ML VIAL IV PRN ×2 (08:58→17:26)
[2019-01-21] MEDS: PANTOprazole 40 MG TAB PO SCH (09:02)
[2019-01-21] MEDS: INSULIN ASPART 100 UNITS/ML 3 ML PEN SC SCH ×4 (09:32→22:44)
[2019-01-21] MEDS: CARVEDILOL 12.5 MG TAB PO SCH ×2 (09:36→18:12)
[2019-01-21] MEDS: DOCUSATE SODIUM 100 MG CAP PO SCH ×2 (09:36→20:43)
[2019-01-21] MEDS: METFORMIN HCL 500 MG TAB PO SCH (09:37)
[2019-01-21] MEDS: MULTIVITAMIN TAB PO SCH (09:37)
[2019-01-21] MEDS: LOSARTAN POTASSIUM 50 MG TAB PO SCH (09:37)
[2019-01-21] MEDS: CHOLECALCIFEROL 1,000 UNITS TAB PO SCH (09:38)
[2019-01-21] MEDS: PYRIDOXINE HCL 50 MG TAB PO SCH (09:38)
[2019-01-21] MEDS: AMIODARONE 200 MG TAB PO SCH (11:29)
--- NOTE | 2019-01-21 14:46 | Pharmacy Report ---
Pharmacy Glycemic Short Note 2 - Date of Service January 21, 2019 - Glycemic Short BSG Results (Last 24 hours): 01/20/19 01/20/19 01/21/19 16:57 20:03 08:10 POC Glucose 113 H 130 H 113 H 01/21/19 12:11 POC Glucose 117 H OUTPATIENT ANTIDIABETIC REGIMEN: * Metformin 500 mg PO qam ASSESSMENT: 01/21 * Ms. Cruzt is POD 2 s/p shoulder arthroplasty * BSGs have been stable with tighter bolus parameters. Now that intraop steroids worn off, will loosen Novolog parameters and resume outpatient metformin for transition to home. 01/20 * s/p total shoulder arthroplasty (01/19/19) * Received one dose of dexamethasone 4 mg IV in OR yesterday * A1c resulted today at 6.2% (well-controlled with home metformin 500 mg PO qam) PLAN FOR INPATIENT GLYCEMIC CONTROL: * Resume metformin 500 mg qAM (renal function stable on 01/20) * Basal insulin * No further basal * Bolus insulin * NovoLog per scale ACHS or Q6hrs while NPO * Goal Range: Low 120 mg/dL - High 160 mg/dL * Correction Factor: 30 mg/dL/unit * No prandial coverage PLAN FOR DISCHARGE: * HbA1c at goal (6.2%) * Continue home regimen at discharge * Metformin 500 mg PO qam
[2019-01-21] MEDS: RIVAROXABAN 15 MG TAB PO SCH (18:13)
[2019-01-21] MEDS: HYDROCODONE/ACETAMOPHEN 5/325MG TAB PO PRN (18:36)
[2019-01-21] MEDS: SENNA 8.6 MG TAB PO SCH (20:43)
[2019-01-22] MEDS: HYDROCODONE/ACETAMOPHEN 5/325MG TAB PO PRN ×4 (00:05→14:37)
[2019-01-22] MEDS: LEVOTHYROXINE SODIUM 175 MCG TABLET PO SCH (05:40)
[2019-01-22] MEDS: PANTOprazole 40 MG TAB PO SCH (05:40)
[2019-01-22 06:00] LABS: Est GFR (African American) 77.7
[2019-01-22] MEDS: METFORMIN HCL 500 MG TAB PO SCH (08:31)
[2019-01-22] MEDS: MULTIVITAMIN TAB PO SCH (08:33)
[2019-01-22] MEDS: LOSARTAN POTASSIUM 50 MG TAB PO SCH (08:34)
[2019-01-22] MEDS: DOCUSATE SODIUM 100 MG CAP PO SCH (08:34)
[2019-01-22] MEDS: PYRIDOXINE HCL 50 MG TAB PO SCH (08:34)
[2019-01-22] MEDS: CHOLECALCIFEROL 1,000 UNITS TAB PO SCH (08:34)
--- NOTE | 2019-01-22 08:34 | Orthopedic Progress Note ---
Date of Service January 22, 2019 Assessment & Plan (1) Right shoulder pain: POD #3, Right reversed TSA, Biceps tenodesis PT/ OT D/C planning- Home w HEP today As per medicine. Supervising Physician Co-Signing Physician Notes Patient was seen and examined today. I agree with JOHN Henriquez's note above. She is doing significantly better today in terms of both the pain control and nausea. She feels in much better spirits. She should be ready for discharge to home. Subjective POD #3, doing well this am. resting comfortably in chair listening to music Denies SOB, CP, N/V Feels better and ready to go home Physical Exam Physical Exam: Fingers mobile, NVI. Calves soft, non tender. Incision clean dry intact. Results & Data Vital Signs (Past 12 Hours) Vital Signs Temp Pulse Resp BP Pulse Ox 01/22/19 07:13 36.9 C 81 16 98/62 L 93 01/21/19 23:10 37 C 90 16 111/71 96
[2019-01-22 09:12] LABS: Hematocrit (blood only) 34.2 % (37-47); Hemoglobin 11.1 g/dL (12.0-16.0); Mean Corpuscular Hgb Conc 32.5 g/dL (32-36); Mean Platelet Volume 10.5 fL (7.4-10.4); Platelet Count 235 K/uL (130-400); RDW Coefficient of Variation 16.2 % (11.5-14.5); RDW Standard Deviation 58.2 fL (36.4-46.3); Red Blood Count 3.49 M/uL (4.2-5.4); White Blood Count 9.94 K/uL (4.8-10.8)
[2019-01-22] MEDS: INSULIN ASPART 100 UNITS/ML 3 ML PEN SC SCH ×2 (10:14→12:15)
[2019-01-22] MEDS: CARVEDILOL 12.5 MG TAB PO SCH (10:38)
[2019-01-22] MEDS: AMIODARONE 200 MG TAB PO SCH (12:47)
--- NOTE | 2019-01-23 22:35 | Discharge Summary ---
DISCHARGE DIAGNOSES: Right shoulder chronic irreparable rotator cuff tear, rotator cuff arthropathy, biceps tendinopathy. SECONDARY DIAGNOSES: Congestive heart failure, coronary artery disease status post myocardial infarction in 2017, hypertension, atrial fibrillation, diabetes mellitus, hypothyroidism, osteoarthritis, sciatica, gastroesophageal reflux disease, obesity, history of basal cell carcinoma. CONSULTS: Rosita Turpin MD COMPLICATIONS: None. PROCEDURES: Right reverse total shoulder arthroplasty with biceps tenodesis by Dr. Mcgrath on 01/19/2019. BRIEF HISTORY: As dictated in the history and physical. HOSPITAL SUMMARY: The patient was admitted on the above-noted date and had the above-noted surgery performed, which she tolerated well. Dr. Turpin was consulted for medical consult and medical management during the patient's stay. On the first postoperative day, the patient was doing well and had no complaints. Pain was controlled. Shoulder dressings were intact. Fingers were mobile. Sling was intact and vital signs were stable and the patient was afebrile. Hemoglobin was 10.6. By her second postoperative day, she was doing well that morning and resting comfortably. No shortness of breath, chest pain, nausea or vomiting. Pain was controlled, but knows it was a little bit worse control yesterday evening. Fingers were mobile. Neurovascularly intact. Calves were soft, nontender. Incisions were clean and dry. Vital signs were stable. She was afebrile. She was continued on her limited PT and OT protocol and plans for home health. She was continued on her Xarelto for DVT prophylaxis. The rest of her stay was essentially uneventful, and by 01/22/2019, she continued to progress well. She was feeling better overall and ready to go home. She had no complaints. Her exam had not changed. Incision was clean, dry and intact. Neurovascularly intact. Fingers were mobile. Vital signs were stable. She was afebrile and it was felt she could be discharged to home with home health services. For further review, please see chart. LABORATORY AND X-RAY DATA: As per chart. DISCHARGE INSTRUCTIONS: The patient was discharged to home in satisfactory condition on 01/22/2019. Diet: Diabetic. Activity: Follow reverse total shoulder arthroplasty instructions and special care instructions as noted. Follow up with Dr. Mcgrath in 2 weeks. The patient is to call for appointment if one has not been made for you. DISCHARGE MEDICATIONS: Hydrocodone/acetaminophen 1 tab p.o. 6 hours, multivitamin 1 tab p.o. daily, Xarelto 15 mg p.o. q.d. Resume home meds as listed. Stop taking previous 20 mg dose of Xarelto.
== END 2019-01-22 14:49 | disposition home or self-care (01) | DRG 483 ==
LOC: ASU 06:54 → 3E 12:56
DX: Z86.79 Personal history of other diseases of the circulatory system; Z82.49 Family history of ischemic heart disease and other diseases of the circulatory system; I25.10 Atherosclerotic heart disease of native coronary artery without angina pectoris; Z68.28 Body mass index [BMI] 28.0-28.9, adult; Z79.01 Long term (current) use of anticoagulants; E03.9 Hypothyroidism, unspecified; M75.21 Bicipital tendinitis, right shoulder; Z79.899 Other long term (current) drug therapy; Z87.891 Personal history of nicotine dependence; I25.2 Old myocardial infarction; I50.22 Chronic systolic (congestive) heart failure; Z51.81 Encounter for therapeutic drug level monitoring; I48.1 Persistent atrial fibrillation; I11.0 Hypertensive heart disease with heart failure; K21.9 Gastro-esophageal reflux disease without esophagitis; E66.9 Obesity, unspecified; M19.011 Primary osteoarthritis, right shoulder; Z88.2 Allergy status to sulfonamides; E11.9 Type 2 diabetes mellitus without complications; M75.101 Unspecified rotator cuff tear or rupture of right shoulder, not specified as traumatic; Z79.84 Long term (current) use of oral hypoglycemic drugs